=== PATIENT | male | born 1940 | race Caucasian/White ===

== ENCOUNTER → 2020-04-20 | Day surgery (SDC) | payer OTHER ==
[~2020-04-20] MED LIST: CRESTOR5 MG PO; ELIQUIS5 MG PO; LASIX20 MG PO; NORVASC5 MG PO; PRINIVIL10 MG PO; TENORMIN50 MG PO
== END | disposition home or self-care (01) ==
LOC: FAS 12:56
DX: H26.491 Other secondary cataract, right eye (principal); Z20.822 Contact with and (suspected) exposure to COVID-19

== ENCOUNTER → 2020-05-18 | Day surgery (SDC) | payer OTHER | END | disposition home or self-care (01) | LOC: FAS 11:54 | DX: H26.491 Other secondary cataract, right eye (principal); M19.90 Unspecified osteoarthritis, unspecified site; I10 Essential (primary) hypertension ==

== ENCOUNTER 2021-01-21 11:23 | Emergency (ER) | payer OTHER ==
[2021-01-21 13:02] LABS: BASOPHIL 0.9 % (0-2); EOSINOPHIL 3.2 % (0-7); HCT 44.1 % (42.0-52.0); HGB 14.3 g/dl (13.2-18.0); LYMPHOCYTE 21.5 % (15-48); MCH 28.8 pg (25.0-31.0); MCHC 32.4 g/dL (32.0-36.0); MCV 88.7 fL (78.0-100.0); MONOCYTE 10.9 % (0-12); MPV 9.9 fL (6.0-9.5); NEUTROPHIL 63.4 % (41-80); NRBC 0; PLT 179 K/uL (150-400); RBC 4.97 M/uL (4.70-6.00); RDW 13.9 % (11.5-14.0)
[2021-01-21 13:21] LABS: BUN/CREAT RATIO (CALC) 18.5 RATIO; CREATININE 1.62 mg/dL (0.67-1.17)
[2021-01-21 13:45] LABS: BILIRUBIN NEGATIVE (NEGATIVE); BLOOD NEGATIVE Ery/uL (NEGATIVE); CLARITY CLEAR (CLEAR); COLOR YELLOW (YELLOW); GLUCOSE (U) NORMAL (NORMAL); LEUKOCYTES NEGATIVE Leu/uL (NEGATIVE); NITRITE NEGATIVE (NEGATIVE); PROTEIN NEGATIVE (NEGATIVE)
== END 2021-01-21 15:06 | disposition home or self-care (01) ==
LOC: FER 11:23
PROVIDERS: Emergency Medicine
DX: S01.01XA Laceration without foreign body of scalp, initial encounter (principal); E87.5 Hyperkalemia; I95.1 Orthostatic hypotension; I10 Essential (primary) hypertension; I48.91 Unspecified atrial fibrillation; F03.90 Unspecified dementia, unspecified severity, without behavioral disturbance, psychotic disturbance, mood disturbance, and anxiety; Z23 Encounter for immunization; Z79.01 Long term (current) use of anticoagulants; W19.XXXA Unspecified fall, initial encounter; Y92.009 Unspecified place in unspecified non-institutional (private) residence as the place of occurrence of the external cause
CPT/HCPCS: 36415; 70450; 71045; 80048; 81003; 84484; 85025; 90471; 90715; 93005; J7030